=== PATIENT | female | born 1995 | race Caucasian/White ===

== ENCOUNTER 2019-08-05 01:23 | Emergency (ER) | payer MEDICAID ==
[~2019-08-05] VITALS: Ht 157.5 cm; Wt 87.7 kg
[2019-08-05 01:32] VITALS: Ht 157.5 cm; Wt 87.7 kg
[2019-08-05 02:01] VITALS: BP 145/78
== END 2019-08-05 02:02 | disposition home or self-care (01) ==
LOC: ED 01:23
DX: Z48.00 Encounter for change or removal of nonsurgical wound dressing (principal)